=== PATIENT | male | born 1960 | race Two or more races ===

== ENCOUNTER 2024-02-27 12:10 | Outpatient (CLI) | payer OTHER ==
[~2024-02-27 12:10] MED LIST: CEFADROXIL500 MG PO; CLONIDINE HCL0.2 MG PO; COZAAR100 MG PO; DILTIAZEM ER120 M2 PO
== END 2024-02-27 12:22 | disposition home or self-care (01) ==
LOC: RAD 12:10
PROVIDERS: ATTEND Orthopaedic Surgery
DX: M25.571 Pain in right ankle and joints of right foot (principal)

== ENCOUNTER 2024-04-09 10:29 | Outpatient (CLI) | payer OTHER | END 2024-04-09 10:38 | disposition home or self-care (01) | LOC: RAD 10:29 | DX: C79.51 Secondary malignant neoplasm of bone (principal); D16.9 Benign neoplasm of bone and articular cartilage, unspecified ==